=== PATIENT | female | born 1995 | race Caucasian/White ===

== ENCOUNTER 2019-03-03 19:00 | Emergency (ER) | payer MEDICAID ==
[~2019-03-03] VITALS: Ht 154.9 cm; Wt 217.7 kg
[2019-03-03 19:03] VITALS: BP 154/105
[2019-03-03] MEDS ORDERED: CLIN-90 PO (19:29)
== END 2019-03-03 20:01 | disposition home or self-care (01) ==
LOC: ER 19:03
DX: K04.7 Periapical abscess without sinus (principal); F17.200 Nicotine dependence, unspecified, uncomplicated; Z79.2 Long term (current) use of antibiotics
CPT/HCPCS: 99283

== ENCOUNTER 2019-03-24 15:36 | Emergency (ER) | payer MEDICAID ==
[~2019-03-24] VITALS: Ht 154.9 cm; Wt 82.8 kg
[~2019-03-24 15:36] MED LIST: CLIN-90 PO
[2019-03-24 15:44] VITALS: BP 150/107
[2019-03-24] MEDS ORDERED: PENI500T2 PO (15:54)
== END 2019-03-24 16:01 | disposition home or self-care (01) ==
LOC: ER 15:37
DX: K04.7 Periapical abscess without sinus (principal); Z79.899 Other long term (current) drug therapy
CPT/HCPCS: 99283